=== PATIENT | female | born 2000 | race Caucasian/White ===

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

== ENCOUNTER 2020-01-14 21:43 | Emergency (ER) | payer OTHER ==
[~2020-01-14] VITALS: Ht 157.5 cm; Wt 115.3 kg
--- NOTE | 2020-01-14 21:49 | PHYS DOC ---
Past History Past Medical History: No Pertinent History, Migraines Past Medical History ADHD- on meds Past Surgical History: No Surgical History Additional Past Surgical Histo: RIGHT SHOULDER SURGERY AT 18 MONTHS Smoking: Non-smoker Alcohol Use: None Drug Use: None General Adult HPI: HPI: " I ve had a really bad headache the last two days.. it feels like my head is in a vise.. or a belt all the way around it... and somebody keeps tightening. .. it.s been going on for two days now.. it did not respond Excedrin Tylenol...." Patient is a 19 year old female who presents with above hx and complaints of headache. Patient does complain of photophobia, nausea, sensitivity to loud bronwyn nds. Patient has had some malaise, arthralgia, myalgia, but no history of fever or chills. Patient denies any specific ill contacts. Patient does work at [employer]. Patient is normally healthy. No recent travel outside the [place] area. No history of trauma. Patient's father works at [employer]. Other family members are not ill. No contact with ill animals. Patient does have a history of ADHD and has been on meds since age 7. Patient has had headaches in the past but they have always gone away with pwnh-[id number] meds such as ibuprofen or Tylenol. Patient's vaccinations are up-to-date. Pt. has in past followed with Dr. Mooney and Dr. Reeves. Review of Systems: Review of Systems: Constitutional: Denies fever or chills Eyes: Complains of photo phobia HENT: Denies nasal congestion or sore throat Respiratory: Denies cough or shortness of breath Cardiovascular: Denies chest pain or edema GI: Complains of nausea,. Denies vomiting, bloody stools or diarrhea : Denies dysuria Musculoskeletal: Denies back pain or joint pain Integument: Denies rash Neurologic: Complains of persistent headache for the last couple days. Headache is not relieved with home meds. Patient denies any focal weakness or sensory changes Endocrine: Denies polyuria or polydipsia Lymphatic: Denies swollen glands Psychiatric: Denies depression. History of anxiety Family History: Family History: Noncontributory to presentation. Current Medications: Current Meds: See nursing list for current meds Allergies: Allergies: Allergies Coded Allergies Type Severity Reaction Last Updated Verified No Known Drug Allergies 03/13/19 No Physical Exam: PE: Constitutional: Well developed, well nourished, mild distress, non-toxic appearance. [] HENT: Normocephalic, atraumatic, bilateral external ears normal, oropharynx moist, no oral exudates, no injection, nose slightly swollen turbinates with clear rhinorrhea. Temporal arteries nontender. TMs normal. Eyes: PERRLA, EOMI, conjunctiva normal, no discharge. Does have photophobia with bright lights and ophthalmic exam.. Fundus is benign Neck: Normal range of motion, no tenderness, supple, no stridor. [] Cardiovascular: Tachycardia heart rate, regular rhythm, no murmur. Monitor shows a sinus tachycardia rhythm with no acute morphology. Lungs & Thorax: Bilateral breath sounds equal at apex on auscultation [] Abdomen: Bowel sounds normal, soft, no tenderness, no masses, no pulsatile masses. [] Skin: Warm, dry, no erythema, no rash. [] Back: No tenderness, no CVA tenderness. [] Extremities: No tenderness, no cyanosis, no clubbing, ROM intact, no edema. [] Neurologic: Alert and oriented X 3, patient moves all extremities on request, has distal sensory function, no focal deficits noted. DTRs +2 patella and brachial. Target Trimmer equal. Right-hand dominant. No drift. Patient is amatory without problems. Psychologic: Affect anxious, judgement normal, mood normal. [] EKG: EKG: My interpretation EKG shows a sinus rhythm at 95 bpm. There is no findings of acute morphology [] Radiology/Procedures: Radiology/Procedures: [address] [address] IMAGING REPORT Signed PATIENT: SKYLER POTTS ACCOUNT: [id number] : 2000 LOCATION: ER AGE: 19 SEX: F EXAM STATUS: REG ER ORD. PHYSICIAN: JUANITA MENDES MD REASON: Head ache x 2 day, Migraine like, HTN PROCEDURE: CT HEAD WO CONTRAST EXAM: CT HEAD WITHOUT CONTRAST. HISTORY: Headache, hypertension. TECHNIQUE: Computed tomography of the head was performed without intravenous contrast. One or more of the following individualized dose reduction techniques were utilized for this examination: 1. Automated exposure control. 2. Adjustment of the mA and/or kV according to patient size. 3. Use of iterative reconstruction technique. COMPARISON: None. FINDINGS: There is no intracranial hemorrhage. Persaud-white differentiation is preserved. The ventricles are normal in size and position. The visualized paranasal sinuses appear clear. The orbits are unremarkable. The temporal bones are unremarkable. The calvarium reveals no suspicious lesions. IMPRESSION: 1. No acute intracranial findings. Electronically signed by: German Morales MD (01/15/2020 12:34 AM) [facility] DICTATED AND SIGNED BY: DAYNA MORALES MD DATE: 01/15/2033 CC: JUANITA MENDES MD; JACQUIE REEVES MD ~ [][place] [address] IMAGING REPORT Signed PATIENT: SKYLER POTTS ACCOUNT: [id number] : 2000 LOCATION: ER AGE: 19 SEX: F EXAM STATUS: REG ER ORD. PHYSICIAN: JUANITA MENDES MD REASON: Headache, Migraine x 2 days, HTN PROCEDURE: PORTABLE CHEST 1V EXAM: CHEST ONE VIEW. HISTORY: Hypertension. COMPARISON: 04/17/2017. FINDINGS: A frontal view of the chest is obtained. There are no confluent infiltrates. There is no pneumothorax or pleural effusion. The heart is not enlarged. IMPRESSION: 1. No confluent infiltrates. Electronically signed by: German Morales MD (01/15/2020 12:32 AM) [facility] DICTATED AND SIGNED BY: DAYNA MORALES MD DATE: 01/15/2031 Heart Score: HEART Score for Chest Pain: HEART Score for Chest Pain Response (Comments) Value History Slighlty/Non-Suspicious 0 ECG Normal 0 Age < 45 0 Risk Factors No Risk Factors 0 Troponin < Normal Limit 0 Total 0 Risk Factors: Risk Factors: DM, Current or recent (<one month) smoker, HTN, HLP, family history of CAD, obesity. Risk Scores: Score 0 - 3: 2.5% MACE over next 6 weeks - Discharge Home Score 4 - 6: 20.3% MACE over next 6 weeks - Admit for Clinical Observation Score 7 - 10: 72.7% MACE over next 6 weeks - Early Invasive Strategies Course & Med Decision Making: Course & Med Decision Making Pertinent Labs and Imaging studies reviewed. (See chart for details) Patient's symptoms gradually improved with fluid boluses. Patient did receive a dose of Toradol IV which seemed to resolve discomfort. Patient also received Zofran. At this time patient declining spinal tap. Risk and benefits discussed. Suspect this is a viral syndrome. Patient encouraged to self isolate 10 days.. Practice social distancing .. Wear a mask. Patient to follow-up with or Dr. Reeves. Patient return if any concerns. Impression; 1. Headache/migraine 2. Viral syndrome 3. Mild elevation-leukocytosis 11.2 4. Elevated CK 844 5. Mild elevation in CRP 5.3 6. Viral Syndrome [] Dragon Disclaimer: Dragon Disclaimer: This electronic medical record was generated, in whole or in part, using a voice recognition dictation system. Departure Departure: Disposition: 01 DC HOME SELF CARE/HOMELESS Condition: STABLE Referrals: JACQUIE REEVES MD (PCP) Scripts Ondansetron Hcl (ZOFRAN) 4 Mg Tablet 8 MG PO QIDPRN PRN for NAUSEA/VOMITING, #30 TAB Prov: JUANITA MENDES MD 01/15/20 Hydrocodone/Ibuprofen (HYDROCODONE-IBUPROFEN 7.5-200 ) 1 Each Tablet 1 TAB PO PRN Q6HRS PRN for PAIN, #30 TAB 0 Refills Prov: JUANITA MENDES MD 01/15/20 Dragon Disclaimer This chart was dictated in whole or in part using Voice Recognition software in a busy, high-work load, and often noisy Emergency Department environment. It may contain unintended and wholly unrecognized errors or omissions. JUANITA MENDES MD Jan 14, 2020 21:49
[2020-01-14 22:53] LABS: BARBITURATES NEG (NEG); BENZODIAZEPINES NEG (NEG); CANNABINOIDS NEG (NEG); COCAINE NEG (NEG); METHADONE NEG (NEG); OPIATES NEG (NEG); PHENCYCLIDINE NEG (NEG)
[2020-01-14 22:57] LABS: BACTERIA,URINE 0 /HPF (0-FEW); BILIRUBIN,URINE NEG (NEG); CLARITY,URINE CLEAR; COLOR,URINE YELLOW; GLUCOSE,URINE NEG (NEG); NITRITE,URINE NEG (NEG); RBC,URINE OCC /HPF (0-2); SQUAMOUS EPITHELIAL CELL,UR OCC /LPF; UROBILINOGEN,URINE 0.2 mg/dL (0.2 mg/dL); WBC,URINE OCC /HPF (0-4)
[2020-01-14 23:00] LABS: AMPHETAMINE/METHAMPHETAMINE POS (NEG)
[2020-01-14] MEDS ORDERED: ONDANSETRON PF 4 MG/2 ML VIAL. IVP ONE (23:00)
[2020-01-14] MEDS ORDERED: oxyCODONE/APAP 5/325 1 TAB TABLET PO ONE (23:00)
[2020-01-14] MEDS ORDERED: IV RINGERS SOLUTION,LACTATED 1,000 ML IV SCH (23:00)
[2020-01-14] MEDS ORDERED: diphenhydrAMINE 50 MG/ML VIAL IV ONE (23:00)
[2020-01-14 23:13] LABS: BASO % 0 % (0-3); EOS % 0 % (0-3); HEMATOCRIT 39.9 % (36.0-47.0); HEMOGLOBIN 12.8 g/dL (12.0-15.5); LYMPH # 2.7 x10^3/uL (1.0-4.8); LYMPH % 25 % (24-48); MEAN CORPUSCULAR HEMOGLOBIN 28 pg (25-35); MEAN CORPUSCULAR HGB CONC 32 g/dL (31-37); MEAN CORPUSCULAR VOLUME 87 fL (79-100); MONO # 0.6 x10^3/uL (0.0-1.1); MONO % 6 % (0-9); NEUT # 7.7 x10^3uL (1.8-7.7); NEUT % 69 % (31-73); PLATELET COUNT 329 x10^3/uL (140-400); RED BLOOD COUNT 4.57 x10^6/uL (3.50-5.40); WHITE BLOOD COUNT 11.2 x10^3/uL (4.0-11.0)
[2020-01-14 23:26] LABS: CALCIUM 9.2 mg/dL (8.5-10.1); GFR 71.4; POTASSIUM 3.9 mmol/L (3.5-5.1)
[2020-01-14 23:38] LABS: ALBUMIN 4.1 g/dL (3.4-5.0); C REACTIVE PROTEIN 5.3 mg/L (0-3.3); DIRECT BILIRUBIN 0.1 mg/dL (0.0-0.2); MAGNESIUM 2.1 mg/dL (1.8-2.4); TOTAL BILIRUBIN 0.3 mg/dL (0.2-1.0); TOTAL PROTEIN 7.3 g/dL (6.4-8.2)
--- NOTE | 2020-01-15 00:35 | RAD ---
EXAM: CHEST ONE VIEW. HISTORY: Hypertension. COMPARISON: 04/17/2017. FINDINGS: A frontal view of the chest is obtained. There are no confluent infiltrates. There is no pneumothorax or pleural effusion. The heart is not enlarged. IMPRESSION: 1. No confluent infiltrates. Electronically signed by: German Morales MD (01/15/2020 12:32 AM) [facility]
--- NOTE | 2020-01-15 00:37 | RAD ---
EXAM: CT HEAD WITHOUT CONTRAST. HISTORY: Headache, hypertension. TECHNIQUE: Computed tomography of the head was performed without intravenous contrast. One or more of the following individualized dose reduction techniques were utilized for this examination: 1. Automated exposure control. 2. Adjustment of the mA and/or kV according to patient size. 3. Use of iterative reconstruction technique. COMPARISON: None. FINDINGS: There is no intracranial hemorrhage. Persaud-white differentiation is preserved. The ventricles are normal in size and position. The visualized paranasal sinuses appear clear. The orbits are unremarkable. The temporal bones are unremarkable. The calvarium reveals no suspicious lesions. IMPRESSION: 1. No acute intracranial findings. Electronically signed by: German Morales MD (01/15/2020 12:34 AM) [facility]
[2020-01-15] MEDS ORDERED: KETOROLAC 30 MG/ML VIAL. IVP ONE (01:00)
[2020-01-15 01:25] VITALS: BP 130/92
[2020-01-15] MEDS ORDERED: HYDR-1179 PO (01:32)
[2020-01-15] MEDS ORDERED: ONDA4TAB7 PO (01:34)
--- NOTE | 2020-01-15 02:06 | EKG ---
[address] [address] Test Date: 2020-01-14 Test Time: 23:19:31 Pat Name: SKYLER POTTS Department: Room: Gender: F Z [employer] Programmer: : 2000 Requested By: JUANITA MENDES Order Number: [id number] Reading MD: Juan Daniel Zimmerman Measurements Intervals [place] Rate: 95 P: 35 VT: 148 QRS: 7 QRSD: 92 T: 7 QT: 366 QTc: 463 Interpretive Statements SINUS RHYTHM NORMAL ECG RI6.02 No previous ECG available for comparison Electronically Signed On 01-16-2020 10:51:16 IT AUDITOR by Juan Daniel Zimmerman
== END 2020-01-15 02:10 | disposition home or self-care (01) ==
LOC: ER 21:43
DX: G43.909 Migraine, unspecified, not intractable, without status migrainosus (principal); B34.9 Viral infection, unspecified; D72.829 Elevated white blood cell count, unspecified; R79.82 Elevated C-reactive protein (CRP); R79.89 Other specified abnormal findings of blood chemistry
CPT/HCPCS: 36415; 70450; 71045; 80048; 80076; 80307; 81001; 81025; 82550; 83690; 83735; 83880; 84443; 84484; 85025; 85379; 85610; 85730; 86140; 93005; 96361; 96374; 96375; 99285; J1200; J1885; J2405; J7120

== ENCOUNTER 2020-04-20 12:53 | Emergency (ER) | payer OTHER ==
[~2020-04-20] VITALS: Ht 157.5 cm; Wt 114.0 kg
[~2020-04-20 12:53] MED LIST changes: +ONDA4TAB7 PO
--- NOTE | 2020-04-20 13:34 | PHYS DOC ---
Past History Past Medical History: No Pertinent History Additional Past Medical Histor: Insomnia, ADHD Past Surgical History: No Surgical History Additional Past Surgical Histo: RIGHT SHOULDER SURGERY AT 18 MONTHS Smoking: Non-smoker Alcohol Use: None Drug Use: None General Adult EDM: Chief Complaint: CHEST PAIN HPI: HPI: Patient is a 20-year-old female coming in for left-sided chest pain. Patient initially went to urgent care but was directed to come to the emergency department. 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 to her neck a little bit last night but is gone now. Does not take anything for the pain. Pain is not worse with palpation but it is worse with taking a deep breath. Denies any fevers, cough, vomiting or diarrhea. Has family history of blood clots. Denies any swelling of her feet or ankles. Denies tobacco, alcohol, drug use. Review of Systems: Review of Systems: All other systems within normal limits except for as noted in the HPI Allergies: Allergies: Allergies Coded Allergies Type Severity Reaction Last Updated Verified No Known Drug Allergies 01/14/20 No Physical Exam: PE: Constitutional: Well developed, well nourished, no acute distress, non-toxic appearance. [] HENT: Normocephalic, atraumatic, bilateral external ears normal, nose normal. [] Eyes: PERRLA, conjunctiva normal, no discharge. [] Neck: No rigidity, supple, no stridor. [] Cardiovascular: Tachycardic, regular rhythm, brisk cap refill [] Lungs & Thorax: Non labored symmetric respirations, no tachypnea or respiratory distress [] Abdomen: Soft, nondistended. Skin: Warm, dry, no erythema, no rash. [] Back: Unremarkable Extremities: No deformities, range of motion grossly intact, no lower extremity edema [] Neurologic: Alert and oriented X 3, no focal deficits noted. [] Psychologic: Affect normal, judgement normal, mood normal. [] Current Patient Data: Vital Signs: Vital Signs Date Time Temp Pulse Resp B/P (MAP) Pulse Ox O2 Delivery O2 Flow Rate FiO2 04/20/20 13:00 97.8 123 16 148/90 (109) 99 Room Air EKG: EKG: Sinus tachycardia, heart rate 120 bpm, normal axis, no ST elevation or depression Q waves and T wave inversion in lead III [] Radiology/Procedures: Radiology/Procedures: CT arteriogram of the chest. HISTORY: Short of breath, chest pain CT arteriogram of the chest was done using 100 and now Omnipaque 350 contrast. coronal MIP images were reconstructed. Thyroid is homogeneous. There is normal thymic tissue in the anterior mediastinum. There is no mediastinal adenopathy or pleural effusion. Visualized portions the liver and spleen are unremarkable. Lungs are free of infiltrates. This study is negative for evidence of a pulmonary embolus. IMPRESSION: 1. Negative for a pulmonary embolus. 2. No acute infiltrates. [] Heart Score: Risk Factors: Risk Factors: DM, Current or recent (<one month) smoker, HTN, HLP, family history of CAD, obesity. Risk Scores: Score 0 - 3: 2.5% MACE over next 6 weeks - Discharge Home Score 4 - 6: 20.3% MACE over next 6 weeks - Admit for Clinical Observation Score 7 - 10: 72.7% MACE over next 6 weeks - Early Invasive Strategies Course & Med Decision Making: Course & Med Decision Making Pertinent Labs and Imaging studies reviewed. (See chart for details) [] Dragon Disclaimer: Dragon Disclaimer: This electronic medical record was generated, in whole or in part, using a voice recognition dictation system. Departure Departure: Impression: Primary Impression: Chest pain in adult Disposition: 01 DC HOME SELF CARE/HOMELESS Condition: STABLE Referrals: JACQUIE WINKLER MD (PCP) Patient Instructions: Chest Pain (Nonspecific) SUJEY OSULLIVAN MD Apr 20, 2020 13:34
[2020-04-20] MEDS ORDERED: IV NORMAL SALINE 1,000ML 1,000 ML IV ONE (14:00)
[2020-04-20] MEDS ORDERED: IOHEXOL 350 MG/ML 100 ML VIAL. IV ONE (14:00)
[2020-04-20] MEDS ORDERED: KETOROLAC 15 MG/ML VIAL. IVP ONE (14:00)
[2020-04-20 14:09] LABS: BASO % 0 % (0-3); EOS % 0 % (0-3); HEMATOCRIT 40.7 % (36.0-47.0); HEMOGLOBIN 13.1 g/dL (12.0-15.5); LYMPH # 2.4 x10^3/uL (1.0-4.8); LYMPH % 21 % (24-48); MEAN CORPUSCULAR HEMOGLOBIN 28 pg (25-35); MEAN CORPUSCULAR HGB CONC 32 g/dL (31-37); MEAN CORPUSCULAR VOLUME 87 fL (79-100); MONO # 0.6 x10^3/uL (0.0-1.1); MONO % 6 % (0-9); NEUT # 8.1 x10^3uL (1.8-7.7); NEUT % 73 % (31-73); PLATELET COUNT 301 x10^3/uL (140-400); RED BLOOD COUNT 4.68 x10^6/uL (3.50-5.40); RED CELL DISTRIBUTION WIDTH 13.4 % (11.5-14.5); WHITE BLOOD COUNT 11.1 x10^3/uL (4.0-11.0)
[2020-04-20 14:16] LABS: GFR 70.7
--- NOTE | 2020-04-20 14:19 | EKG ---
[address] [address] Test Date: 2020-04-20 Test Time: 13:06:28 Pat Name: SKYLER POTTS Department: Room: Gender: F Dock Manager: NIK : 2000 Requested By: SUJEY OSULLIVAN Order Number: [id number] Reading MD: Juan Daniel Zimmerman Measurements Intervals [place] Rate: 123 P: 48 GA: 134 QRS: 24 QRSD: 90 T: 12 QT: 314 QTc: 455 Interpretive Statements SINUS TACHYCARDIA Electronically Signed On 04-22-2020 10:06:34 QUILL FIXER by Juan Daniel Zimmerman
[2020-04-20 14:21] LABS: BILIRUBIN,URINE NEG (NEG); CLARITY,URINE TURBID; COLOR,URINE YELLOW; GLUCOSE,URINE NEG (NEG); NITRITE,URINE NEG (NEG); UROBILINOGEN,URINE 0.2 mg/dL (0.2 mg/dL)
[2020-04-20 14:22] LABS: BACTERIA,URINE MANY /HPF (0-FEW)
[2020-04-20 14:23] LABS: SQUAMOUS EPITHELIAL CELL,UR MANY /LPF
[2020-04-20 14:29] LABS: ALBUMIN 3.8 g/dL (3.4-5.0); TOTAL BILIRUBIN 0.4 mg/dL (0.2-1.0); TOTAL PROTEIN 7.6 g/dL (6.4-8.2)
[2020-04-20] MEDS ORDERED: LIDO:MAALOX 1:1 20 ML SINGLE DOSE. PO ONE (14:30)
[2020-04-20 14:44] LABS: POTASSIUM 4.1 mmol/L (3.5-5.1)
--- NOTE | 2020-04-20 15:06 | RAD ---
CT arteriogram of the chest. HISTORY: Short of breath, chest pain CT arteriogram of the chest was done using 100 and now Omnipaque 350 contrast. coronal MIP images wer e reconstructed. Thyroid is homogeneous. There is normal thymic tissue in the anterior mediastinum. T here is no mediastinal adenopathy or pleural effusion. Visualized portions the liver and spleen are u nremarkable. Lungs are free of infiltrates. This study is negative for evidence of a pulmonary embolu s. IMPRESSION: 1. Negative for a pulmonary embolus. 2. No acute infiltrates. PQRS Compliance Statement: One or more of the following individualized dose reduction techniques were utilized for this examinat ion: 1. Automated exposure control 2. Adjustment of the mA and/or kV according to patient size 3. Use of iterative reconstruction technique Electronically signed by: Seymour Villarreal MD (04/20/2020 3:04 PM) [facility]
[2020-04-20 15:33] VITALS: BP 132/70
== END 2020-04-20 15:50 | disposition home or self-care (01) ==
LOC: ER 12:53
DX: R07.89 Other chest pain (principal); F90.9 Attention-deficit hyperactivity disorder, unspecified type
CPT/HCPCS: 36415; 71275; 80053; 81001; 81025; 83880; 84484; 85025; 85379; 87086; 93005; 96361; 96374; 99285; J1885; J7030; Q9967

== ENCOUNTER → 2020-07-02 | Outpatient (CLI) | payer OTHER ==
[2020-07-02 16:37] LABS: BASO % 0 % (0-3); EOS # 0.1 x10^3/uL (0.0-0.7); EOS % 0 % (0-3); HEMATOCRIT 41.6 % (36.0-47.0); HEMOGLOBIN 13.8 g/dL (12.0-15.5); LYMPH # 2.7 x10^3/uL (1.0-4.8); LYMPH % 18 % (24-48); MEAN CORPUSCULAR HEMOGLOBIN 29 pg (25-35); MEAN CORPUSCULAR HGB CONC 33 g/dL (31-37); MEAN CORPUSCULAR VOLUME 86 fL (79-100); MONO # 0.7 x10^3/uL (0.0-1.1); MONO % 5 % (0-9); NEUT # 11.5 x10^3uL (1.8-7.7); NEUT % 76 % (31-73); PLATELET COUNT 380 x10^3/uL (140-400); RED BLOOD COUNT 4.81 x10^6/uL (3.50-5.40); RED CELL DISTRIBUTION WIDTH 13.4 % (11.5-14.5)
[2020-07-02 16:47] LABS: ALBUMIN 4.2 g/dL (3.4-5.0); ALBUMIN/GLOBULIN RATIO 1.1 (1.0-1.7); CALCIUM 9.3 mg/dL (8.5-10.1); GFR 70.7; POTASSIUM 3.8 mmol/L (3.5-5.1); TOTAL BILIRUBIN 0.4 mg/dL (0.2-1.0); TOTAL PROTEIN 8.2 g/dL (6.4-8.2)
== END ==
LOC: LAB 15:58
PROVIDERS: ATTEND Internal Medicine Cardiovascular Disease
DX: R00.2 Palpitations (principal)
CPT/HCPCS: 36415; 80053; 84443; 85025

== ENCOUNTER 2021-03-29 13:16 | Emergency (ER) | payer OTHER ==
[~2021-03-29] VITALS: Ht 157.5 cm; Wt 124.2 kg
[2021-03-29 13:40] VITALS: BP 139/92
--- NOTE | 2021-03-29 14:08 | RAD ---
PROCEDURE: XR CHEST 1V.03/29/2021 2:05 PM REASON FOR STUDY: Reason: soa, covid + / Spl. Instructions: / History: . COMPARISON: Study of 01/14/2020. FINDINGS: Haziness projects over the lungs bilaterally and may relate to overlying breast tissue, alt robbin some early peripheral infiltrate, especially in the mid left lung, is also possible. There is n o apparent pleural fluid. Heart size is normal. IMPRESSION: Possible mild left-sided infiltrate. Electronically signed by: Chencho Card Jr., MD (03/29/2021 2:05 PM) [id number]
[2021-03-29] MEDS ORDERED: AZIT250T6 PO (14:15)
[2021-03-29] MEDS ORDERED: BENZ-8 PO (14:15)
[2021-03-29] MEDS ORDERED: ALBU2.5V8 IH (14:15)
--- NOTE | 2021-03-29 14:15 | PHYS DOC ---
Past History Past Medical History: No Pertinent History Additional Past Medical Histor: Insomnia, ADHD (NILA PETERSON APRN) Past Surgical History: No Surgical History Additional Past Surgical Histo: RIGHT SHOULDER SURGERY AT 18 MONTHS (NILA PETERSON APRN) Smoking: Non-smoker Alcohol Use: None Drug Use: None (NILA PETERSON APRN) General Adult EDM: Chief Complaint: DYSPNEA/RESPIRATOY DISTRESS HPI: HPI: Patient is a 21-year-old female who presents to the emergency department for a 3-day history of shortness of breath and a nonproductive cough as well as back pain. Patient tested positive for COVID-19 4 days ago. She denies any fever, nausea, vomiting, loss of taste or smell. (NILA PETERSON APRN) Review of Systems: Review of Systems: Constitutional: negative unless reported in HPI Eyes: negative unless reported in HPI HENT: negative unless reported in HPI Respiratory: negative unless reported in HPI Cardiovascular: negative unless reported in HPI GI: negative unless reported in HPI : negative unless reported in HPI Musculoskeletal: negative unless reported in HPI Integument: negative unless reported in HPI Neurologic: negative unless reported in HPI Endocrine: negative unless reported in HPI Lymphatic: negative unless reported in HPI Psychiatric: negative unless reported in HPI (NILA PETERSON APRN) Allergies: Allergies: Allergies Coded Allergies Type Severity Reaction Last Updated Verified No Known Drug Allergies 01/14/20 No (NILA PETERSON APRN) Physical Exam: PE: Constitutional: Well developed, well nourished, no acute distress, non-toxic appearance. [] HENT: Normocephalic, atraumatic, bilateral external ears normal, oropharynx moist, no oral exudates, nose normal. [] Eyes: PERRL, EOMI, conjunctiva normal, no discharge. [] Neck: Normal range of motion, no tenderness, supple, no stridor. [] Cardiovascular:Heart rate regular rhythm, no murmur [] Lungs & Thorax: Bilateral breath sounds clear to auscultation [] Abdomen: Bowel sounds normal, soft, no tenderness, no masses, no pulsatile masses. [] Skin: Warm, dry, no erythema, no rash. [] Back: Normal range of motion Extremities: No tenderness, no cyanosis, no clubbing, ROM intact, no edema. [] Neurologic: Alert and oriented X 3, normal motor function, normal sensory function, no focal deficits noted. [] Psychologic: Affect normal, judgement normal, mood normal. [] (NILA PETERSON APRN) EKG: EKG: [] (NILA PETERSON APRN) Radiology/Procedures: Radiology/Procedures: []PROCEDURE: PORTABLE CHEST 1V PROCEDURE: XR CHEST 1V.03/29/2021 2:05 PM REASON FOR STUDY: Reason: soa, covid + / Spl. Instructions: / History: . COMPARISON: Study of 01/14/2020. FINDINGS: Haziness projects over the lungs bilaterally and may relate to overlying breast tissue, although some early peripheral infiltrate, especially in the mid left lung, is also possible. There is no apparent pleural fluid. Heart size is normal. IMPRESSION: Possible mild left-sided infiltrate. Electronically signed by: Vicente Card Jr., MD (03/29/2021 2:05 PM) [id number] DICTATED AND SIGNED BY: VICENTE CARD Jr, MD DATE: 03/29/21 1405 CC: NILA PETERSON APRN; [employer] ~MTH0 0 (NILA PETERSON APRN) Heart Score: C/O Chest Pain: No Risk Factors: Risk Factors: DM, Current or recent (<one month) smoker, HTN, HLP, family history of CAD, obesity. Risk Scores: Score 0 - 3: 2.5% MACE over next 6 weeks - Discharge Home Score 4 - 6: 20.3% MACE over next 6 weeks - Admit for Clinical Observation Score 7 - 10: 72.7% MACE over next 6 weeks - Early Invasive Strategies (NILA PETERSON APRN) Course & Med Decision Making: Course & Med Decision Making Pertinent Labs and Imaging studies reviewed. (See chart for details) Patient presents to the emergency department for shortness of breath and a nonproductive cough x3 days after being diagnosed with COVID-19. Patient's vital signs are stable and she is in no acute distress. A chest x-ray was performed to rule out pneumonia which showed a possible left midlung infiltrate. Patient be treated with an antibiotic. Patient will also be given an albuterol inhaler and cough medication. I discussed with patient all findings and diagnostic testing as well as the need to follow-up with PCP for further evaluation and treatment or return to the ER if any new or worsening symptoms. Strict return precautions were also discussed at length. Patient voiced understanding and agreement with the plan. Patient is hemodynamically stable at the time of disposition. (NILA PETERSON APRN) Dragon Disclaimer: Renny Disclaimer: This electronic medical record was generated, in whole or in part, using a voice recognition dictation system. (NILA PETERSON APRN) Departure Departure: Impression: Primary Impression: Pneumonia due to COVID-19 virus Disposition: HOME / SELF CARE / HOMELESS Condition: GOOD Referrals: [facility] [employer]C (PCP) Patient Instructions: Pneumonia, Adult Additional Instructions: You were seen in the emergency department today for shortness of breath with COVID-19. A chest x-ray was performed that showed a possible pneumonia. Will be treated with an antibiotic. Please start and finish the antibiotic completely. For cough you can use the medication as prescribed for you as needed. For shortness of breath you can use the albuterol inhaler. I would advise you to purchase a pulse oximeter and monitor your oxygen saturation levels at home. Return to the emergency department if they drop under 90%. Follow-up with your primary care provider on Wednesday regarding your ER visit. Return to the emergency department if your oxygen saturations drop or you develop increased shortness of breath, chest pain, high fevers refractory to treatment, intractable nausea or vomiting, weakness. You have been tested for or diagnosed with COVID-19. It is an infection caused by a new type of coronavirus. COVID-19 will cause cold-like or mild flu symptoms in most. It can cause more severe symptoms like problems breathing in some. There is no treatment for COVID-19. The body will clear the infection over time. Self-care will help to ease discomfort. Steps to Take: Self-Care Rest as needed. Healthy habits may help you feel better. Steps include: Choose healthy foods including fruits and vegetables. Drink water throughout the day. Get plenty of sleep each night. If you smoke, try to quit. It may ease breathing. Avoid alcohol. Keep Others Healthy The virus can spread to others. Droplets are released every time you sneeze or cough. The droplets can get into the mouth, nose, or eyes of people near you and lead to infection. To lower the chances of spreading COVID-19 to others: Stay at home until your doctor has said it is safe to leave. If you tested positive this will mean staying isolated until both of the following are true: At least 7 days have passed since the start of illness. You are free of fever for at least 72 hours without the use of medicine. During this time: - Avoid public areas, events, or transportation. Do not return to work or school until your doctor has said it is safe to do so. - Call ahead if you need to go to a medical center. Let them know you may have COVID-19. It will help them guide you where to go. They may also ask you to wear a facemask when you come to the office. - If you call for emergency medical services, let them know you may have COVID- 19. While at home: - Try to avoid close contact with others. Stay about 6 feet away. - If possible, spend most of your time in a separate room from others. - Use a face mask if you will be in close contact with others such as sharing a room or vehicle. - Have someone wipe down common surfaces in the home. Use household composition mixer every day on areas like doorknobs, counters, or sinks. - Cough or sneeze into a tissue. Throw the tissue away right after use. If a tissue is not available, cough or sneeze into your elbow. - Wash your hands often. Wash them after sneezing or coughing. Use soap and water and wash for at least 20 seconds. Alcohol based hand filter screen cleaner can be used if soap and water is not available. - Do not prepare food for others. Avoid sharing personal items like forks, spoons, or toothbrushes. - Avoid close contact with pets while you are sick. There is no evidence of the virus passing to pets. This is a safety step until more is known about this virus. Isolation can be frustrating. Social interaction can help. Keep in touch with friends and family through phone and tech options. You can still interact with others in your home, just keep a safe distance of about 6 feet. Follow-up: Your doctors office will check in with you to see if there are any changes in your health. You may be asked to keep track of symptoms to share with them. They will also let you know when you are clear to be in public again. Problems to Look Out For: Contact your doctor if your recovery is not going as you expect. Get emergency care if you have problems such as: - Trouble breathing - Nonstop chest pain or pressure - Changes in awareness, confusion, or problems waking - Lips or face have bluish color - Worsening of symptoms If you think you have an emergency, call for emergency medical services right away. As taken from [facility] Albuterol Sulfate (PROAIR HFA INHALER) 8.5 Gm Hfa.aer.ad 2 PUFF IH PRN Q4-6HRS PRN for wheezing for 21 Days, #1 INHALER 0 Refills as needed for wheezing Prov: NILA PETERSON APRN 03/29/21 Benzonatate (BENZONATATE) 100 Mg Capsule 1 CAP PO TID for cough for 7 Days, #21 CAP 0 Refills Prov: NILA PETERSON APRN 03/29/21 Azithromycin (AZITHROMYCIN TABLET) 250 Mg Tablet 1 PKG PO UD for pneumonia for 5 Days, #6 TAB 0 Refills 2 the first day followed by 1 for days 2-5 Prov: NILA PETERSON APRN 03/29/21 Attending Signature Attending Signature I have reviewed the PA/[employer]'s note and plan of care. I was available for consultation as needed during the patient's visit in the emergency department. I agree with the clinical impression, plan, and disposition. (AMARIS SALCEDO DO) NILA PETERSON APRN Mar 29, 2021 14:15 AMARIS SALCEDO DO Mar 30, 2021 01:23
== END 2021-03-29 14:25 | disposition home or self-care (01) ==
LOC: ER 13:20
DX: U07.1 COVID-19 (principal); J12.82 Pneumonia due to coronavirus disease 2019
CPT/HCPCS: 71045; 99283